=== PATIENT | male | born 1960 | race African-American/Black ===

== ENCOUNTER 2019-09-15 23:53 | Emergency (ER) | payer BC, OTHER ==
[~2019-09-15] VITALS: Ht 182.9 cm; Wt 99.8 kg
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
[2019-09-16 00:45] VITALS: BP 140/79
[2019-09-16] MEDS ORDERED: ACETAMINOPHEN 325 MG TABLET PO ONE (01:00)
[2019-09-16] MEDS ORDERED: KETOROLAC TROMETHAMINE INJ 30 MG/ML VIAL IM ONE (01:00)
[2019-09-16] MEDS ORDERED: CYCLOBENZAPRINE 10 MG TABLET PO ONE (01:00)
[2019-09-16] MEDS ORDERED: KETOROLAC TROMETHAMINE INJ 30 MG/ML VIAL ONE (01:05)
[2019-09-16] MEDS ORDERED: ACETAMINOPHEN 325 MG TABLET ONE (01:05)
[2019-09-16] MEDS ORDERED: CYCLOBENZAPRINE 10 MG TABLET ONE (01:06)
--- NOTE | 2019-09-16 01:43 | NUR ---
Patient discharged to home in stable condition. Written and verbal after care instructions given. Patient verbalizes understanding of instruction.
== END 2019-09-16 01:44 | disposition home or self-care (01) ==
LOC: ER 23:57
DX: S13.4XXA Sprain of ligaments of cervical spine, initial encounter (principal); I10 Essential (primary) hypertension; E11.9 Type 2 diabetes mellitus without complications; Z98.890 Other specified postprocedural states; V49.49XA Driver injured in collision with other motor vehicles in traffic accident, initial encounter; Y93.89 Activity, other specified; Y92.488 Other paved roadways as the place of occurrence of the external cause; Y99.8 Other external cause status
CPT/HCPCS: 96372; 99283; J1885